=== PATIENT | female | born 1970 | race Caucasian/White ===

== ENCOUNTER → 2025-02-14 12:25 | Outpatient (BNVA) | payer MEDICARE, MEDICAID, SELFPAY | PROVIDERS: PCP Neurological Surgery; Referring Provider Neurological Surgery; Visit Provider Psychiatry & Neurology Neurology | DX: G56.03 Carpal tunnel syndrome, bilateral upper limbs (principal); G56.22 Lesion of ulnar nerve, left upper limb; I10 Essential (primary) hypertension; Z98.890 Other specified postprocedural states | CPT/HCPCS: 95886; 95911 ==